=== PATIENT | male | born 1960 | race Caucasian/White ===

== ENCOUNTER 2020-09-26 17:41 | Emergency (ER) | payer BC ==
[~2020-09-26] VITALS: Ht 195.6 cm; Wt 136.1 kg
[2020-09-26] MEDS ORDERED: ALLOPURINOL300 MG PO (17:56)
[2020-09-26] MEDS ORDERED: CITALOPRAM HBR20 MG PO (17:56)
[2020-09-26] MEDS ORDERED: FLECAINIDE ACE100 MG PO (17:56)
[2020-09-26] MEDS ORDERED: METFORMIN HCL500 M1 PO (17:57)
[2020-09-26] MEDS ORDERED: LISINOPRIL-HCT1 EACH PO (17:57)
[2020-09-26] MEDS ORDERED: ELIQUIS5 MG PO (17:57)
[2020-09-26] MEDS ORDERED: LOVASTATIN20 MG PO (17:57)
== END 2020-09-26 18:30 | disposition home or self-care (01) ==
LOC: ED 17:41
DX: U07.1 COVID-19 (principal); I10 Essential (primary) hypertension; I48.91 Unspecified atrial fibrillation; E78.00 Pure hypercholesterolemia, unspecified; Z87.891 Personal history of nicotine dependence; Z79.899 Other long term (current) drug therapy; Z79.84 Long term (current) use of oral hypoglycemic drugs
CPT/HCPCS: 99283

== ENCOUNTER 2023-01-25 05:52 | Day surgery (SDC) | payer OTHER ==
[2023-01-19 11:38] VITALS: BP 138/94
[~2023-01-25] VITALS: Ht 195.6 cm; Wt 135.0 kg
[~2023-01-25 05:52] MED LIST: ALLOPURINOL300 MG PO; CITALOPRAM HBR20 MG PO; ELIQUIS5 MG PO; FLECAINIDE ACE100 MG PO; LISINOPRIL-HCT1 EACH PO; LOVASTATIN20 MG PO; METFORMIN HCL500 M1 PO; METFORMIN HCL500 MG PO; METOPROLOL SUCC25 MG PO; OSTERA TABLET1 EACH PO; VIAGRA100 MG PO; ZINC50 MG PO
[2023-01-25 06:11] VITALS: BP 136/85
[2023-01-25 06:34] LABS: BASOPHILS 0.9 % (0-2); EOSINOPHILS 2.9 % (0-6); HEMATOCRIT 45.8 % (35.0-50.0); HEMOGLOBIN 15.9 g/dL (12.0-18.0); MCH 32.5 (27-36); MCHC 34.7 g/dl (30-36); MCV 93.8 fl (81-99); MONOCYTES 9.1 % (0-12); NEUTROPHILS 59.1 % (39-80); PLATELET COUNT 277 K/uL (140-440); RBC 4.89 M/ul (4.3-5.7); RDW 13.5 (10.5-15.0)
--- NOTE | 2023-01-25 07:29 | NUR ---
DS ROUNDS. VISIT APPROX 15 MINUTES. PROVIDED HOSPITALITY. LISTENED EMPATHETICALLY. PROVIDED PRAYER. PT EXPRESSED APPRECIATION OF VISIT.
--- NOTE | 2023-01-25 09:06 | NUR ---
01/25/23 0906 Laura Birch 0851- PT ARRIVES TO PACU, LEFT LATERAL POSITION. OPA IN PLACE, PT MAINTAINING AIRWAY WITH JUST OPA. 10L O2 PER MASK, LR INFUSING TO RIGHT HAND. ALL MONITORS IN PLACE. ABD ROUND, NON DISTENDED, SOFT. PT NON REACTIVE TO STIMULUS AT THIS TIME. WILL CONTINUE TO MONITOR. 0856- SATS REMAIN 99-100% ON 10L O2, O2 TURNED DOWN TO 6L PER MASK. WILL CONTINUE TO MONITOR. 0902- PT HAD SIGNIFICANT DROP IN SYSTOLIC BP FROM 1ST TO 2ND BP. KAYY AGUILAR AT BEDSIDE. PT IS NON REACTIVE TO BOTH VERBAL AND TACTILE STIMULI, MEDICATED WITH PHENYLEPHRINE BY KAYY. WILL CONTINUE TO MONITOR.
[2023-01-25 09:55] VITALS: BP 134/77
--- NOTE | 2023-01-25 12:48 | OR ---
[facility] [address] [place], [place] [address] Signed DATE OF OPERATION: 01/25/2023 SURGEON: Dolores Panda MD PREOPERATIVE DIAGNOSIS: Personal history of adenomatous polyps removed in 2012 at the age of 50. POSTOPERATIVE DIAGNOSES: 1. 2 and 4 mm polyps x2 at 32 cm in sigmoid colon. 2. 4 mm polyps x2 at 110 cm in transverse colon. 3. 4-6 mm polyps x2 at hepatic flexure (snare). 4. 8 mm polyp opposite ileocecal valve (snare). 5. 6 mm polyp at mid right colon (snare). 6. 4 mm polyp at 105 cm in transverse colon. 7. 5 mm polyps x2 at 95 cm in proximal left colon. 8. 6 mm polyp at 90 cm in left colon. 9. Minimal to moderate sigmoid diverticulosis. PROCEDURE: Colonoscopy with snare polypectomy and hot biopsy. ESTIMATED BLOOD LOSS: None. INDICATIONS: Sully is a 62-year-old gentleman, who actually came to us in 2011 at the age of 50. He had a small adenomatous polyp removed. We asked him to follow up in 5 years. However, he had trouble with his heart and had to undergo cardiac ablation and he had to get through the COVID pandemic. He said now he is much better. He was also worried that he might have left inguinal hernia. He has lost some weight and has noticed a little fullness in that area. On exam, it is still hard to know. We thought he might have a small hernia in both groins. He is also worried about a small hydrocele on the left. We did check that ultrasound and reviewed it today. He does have small bilateral inguinal hernias containing fat. There is no evidence of any hydrocele in the left or right testicle. I did explain that to him before he received propofol. He said he really has no lower GI complaints currently. There is no family history of colon cancer or polyps. In the office, I gave him a pamphlet on colonoscopy. We had reviewed the nature of the test. He is aware that he should come every five years. There is risk including, but not limited to gas bloating, crampy abdominal pain, bleeding, perforation requiring surgery, and missed diagnosis. We also reviewed the need for monitored Electronically Signed By: DOLORES PANDA MD 01/25/23 1248 PATIENT NAME: SULLY YATES OPERATIVE REPORT DATE OF : 60 REPORT #: [id number] PHYSICIAN: DOLORES PANDA MD PCP: SOFIE GARZON REPORT IS CONFIDENTIAL AND NOT TO BE RELEASED WITHOUT AUTHORIZATION [facility] [address] [place], [place] [address] Signed anesthesia care given his body mass index and his cardiac history. That proved to be a weiner decision. He had expressed understanding and wished to proceed. DESCRIPTION OF PROCEDURE: Sully was taken into our endoscopy suite and placed in the left lateral decubitus position. He was given monitored anesthesia care with propofol infusion per our nurse forensic accountant. A digital rectal exam was performed. Really not much in the way of any external hemorrhoids. He has good sphincter tone. No masses noted. He is a large man and I cannot reach his prostate gland. The adult colonoscope was introduced and advanced under direct visualization of the camera. It took some extra propofol and some abdominal compression to get the camera around and into the cecum itself. Overall, his prep was good, but he had some areas of liquid stool with some particulate matter. We had used Dulcolax pills with 64 ounces of Gatorade with MiraLAX. He should probably double that to a full 1 gallon of MiraLAX. Eventually, we were able to see the appendiceal orifice and the ileocecal valve and then just opposite the ileocecal valve was a polyp which we removed. The other polyps were removed as we withdrew the scope with a combination of the snare and hot biopsy forceps. He also has some diverticula in the sigmoid colon. They are moderate in size, few in number and scattered about. Once down in the rectum, the scope had been retroflexed and I could not see any obvious pathology above the anal canal. Again, there was some liquid particulate stool matter that we had to suction out. After this, the gas was suctioned out and the colonoscope removed. Sully tolerated procedure quite well. RECOMMENDATIONS: I will see Sully back in my office in 7 to 14 days to review his results. Based on the number of polyps he has had, he should probably consider coming back in one year, but no more than three. He should always use monitored anesthesia care in the future. He definitely needs to double the bowel prep. Dolores Panda MD ALB/FALLONL /[id number] cc: Dolores Panda MD Electronically Signed By: DOLORES PANDA MD 01/25/23 1248 PATIENT NAME: SULLY YATES OPERATIVE REPORT DATE OF : 60 REPORT #: [id number] PHYSICIAN: DOLORES PANDA MD PCP: SOFIE GARZON REPORT IS CONFIDENTIAL AND NOT TO BE RELEASED WITHOUT AUTHORIZATION [facility] [address] [place], [place] [address], [place] [address] Signed Sofie Garzon MD Copies: DOLORES PANDA MD ~ Electronically Signed By: DOLORES PANDA MD 01/25/23 1248 PATIENT NAME: SULLY YATES OPERATIVE REPORT DATE OF : 60 REPORT #: [id number] PHYSICIAN: DOLORES PANDA MD PCP: SOFIE GARZON REPORT IS CONFIDENTIAL AND NOT TO BE RELEASED WITHOUT AUTHORIZATION
--- NOTE | 2023-01-26 07:09 | EKG ---
[facility] [address] [facility] [place], [place] [address] Signed Sinus rhythm with 1st degree AV block Nonspecific intraventricular block Abnormal ECG When compared with ECG of 19-JAN-2023 12:52, Significant changes have occurred Confirmed by PERFECTO COYNE MD ([id number]) on 01/26/2023 7:09:23 AM Electronically Signed By: PERFECTO COYNE 01/26/23708 PATIENT NAME: SULLY YATES Electrocardiogram DATE OF : 60 PHYSICIAN: PERFECTO COYNE REPORT #: [id number] REPORT IS CONFIDENTIAL AND NOT TO BE RELEASED WITHOUT AUTHORIZATION
== END 2023-01-25 09:42 | disposition home or self-care (01) ==
LOC: DS 05:52 → OPS 05:52 → DS 07:30 → OPS 09:42
PROVIDERS: ATTEND Colon & Rectal Surgery
PROC: 0DBL8ZZ Excision of Transverse Colon, Via Natural or Artificial Opening Endoscopic (ICD-10-PCS; 2023-01-25)
PROC: 0DBN8ZZ Excision of Sigmoid Colon, Via Natural or Artificial Opening Endoscopic (ICD-10-PCS; 2023-01-25)
PROC: 0DBC8ZZ Excision of Ileocecal Valve, Via Natural or Artificial Opening Endoscopic (ICD-10-PCS; 2023-01-25)
PROC: 0DBM8ZZ Excision of Descending Colon, Via Natural or Artificial Opening Endoscopic (ICD-10-PCS; 2023-01-25)
PROC: 0DBK8ZZ Excision of Ascending Colon, Via Natural or Artificial Opening Endoscopic (ICD-10-PCS; principal; 2023-01-25 07:30)
DX: Z12.11 Encounter for screening for malignant neoplasm of colon (principal); Z86.010 Personal history of colon polyps; K40.90 Unilateral inguinal hernia, without obstruction or gangrene, not specified as recurrent; N43.3 Hydrocele, unspecified; G47.33 Obstructive sleep apnea (adult) (pediatric); I48.0 Paroxysmal atrial fibrillation; M10.9 Gout, unspecified; I10 Essential (primary) hypertension; E78.5 Hyperlipidemia, unspecified; K57.30 Diverticulosis of large intestine without perforation or abscess without bleeding; D12.2 Benign neoplasm of ascending colon; D12.4 Benign neoplasm of descending colon; D12.0 Benign neoplasm of cecum; D12.5 Benign neoplasm of sigmoid colon; D12.3 Benign neoplasm of transverse colon
CPT/HCPCS: 00811; 36415; 85025; 93005; 93010; J2704; J7121

== ENCOUNTER 2024-09-25 05:37 | Emergency (ER) | payer BC ==
[~2024-09-25] VITALS: Ht 195.6 cm; Wt 117.2 kg
[2024-09-25 06:04] LABS: BASOPHILS 0.8 % (0.2-1.2); EOSINOPHILS 3.6 % (0.8-7.0); LYMPHOCYTES 34.0 % (21.8-53.1); MCH 32.1 PG (25.7-32.2); MCHC 35.1 g/dL (32.3-36.5); MCV 91.4 fL (79.0-92.2); MONOCYTES 9.9 % (5.3-12.2); NEUTROPHILS 51.3 % (34.0-67.9); RBC 5.14 M/uL (4.63-6.08)
[2024-09-25 06:20] LABS: ALT (SGPT) 25.0 U/L (14-59); AST (SGOT) 26.0 U/L (15-37); GLOMERULAR FILTRATION RATE,EST 61.0 mL/min (>60); PROTEIN, TOTAL 7.7 g/dL (6.4-8.2); UREA NITROGEN 22.0 mg/dL (7-18)
[2024-09-25] MEDS ORDERED: POTASSIUM CHLORIDE 10 MEQ TABCR PO ONE (06:45)
[2024-09-25 08:09] VITALS: BP 124/86
--- NOTE | 2024-09-26 20:17 | EKG ---
[facility] [address] [facility] [place] [address] Signed Atrial flutter with variable AV block Right bundle branch block Inferior infarct , age undetermined Abnormal ECG When compared with ECG of 20-SEP-2024 12:19, Inferior infarct is now present T wave inversion no longer evident in Inferior leads T wave inversion now evident in Anterior leads QT has lengthened Confirmed by Albino Garcia MD () on 09/26/2024 8:17:45 PM Electronically Signed By: ALBINO GARCIA MD 09/26/242016 PATIENT NAME: SULLY YATES Electrocardiogram DATE OF : 60 PHYSICIAN: ALBINO GARCIA MD REPORT #: [id number] REPORT IS CONFIDENTIAL AND NOT TO BE RELEASED WITHOUT AUTHORIZATION
--- NOTE | 2024-09-26 20:19 | EKG ---
[facility] [address] [place] [address] Signed Atrial fibrillation with slow ventricular response with ventricular escape complexes Left axis deviation Right bundle branch block Minimal voltage criteria for LVH, may be normal variant ( R in aVL ) Possible Lateral infarct , age undetermined Inferior infarct (cited on or before 25-SEP-2024) Abnormal ECG When compared with ECG of 25-SEP-2024 05:37, Atrial fibrillation has replaced Atrial flutter Borderline criteria for Lateral infarct are now present T wave inversion less evident in Anterior leads Confirmed by Albino Garcia MD () on 09/26/2024 8:19:03 PM Electronically Signed By: ALBINO GARCIA MD 09/26/242018 PATIENT NAME: SULLY YATES Electrocardiogram DATE OF : 60 PHYSICIAN: ALBINO GARCIA MD REPORT #: [id number] REPORT IS CONFIDENTIAL AND NOT TO BE RELEASED WITHOUT AUTHORIZATION
== END 2024-09-25 08:10 | disposition home or self-care (01) ==
LOC: ED 05:37
PROVIDERS: Emergency Medicine
DX: I48.92 Unspecified atrial flutter (principal); I10 Essential (primary) hypertension; E78.00 Pure hypercholesterolemia, unspecified; Z79.899 Other long term (current) drug therapy; Z87.891 Personal history of nicotine dependence
CPT/HCPCS: 36415; 80053; 83735; 84484; 85025; 92960; 93005; 93010; 99285-25; A9270; J2704